=== PATIENT | male | born 1980 | race American Indian/Alaskan Native ===

== ENCOUNTER 2020-06-23 00:37 | Emergency (ER) | payer BC ==
[2020-06-23 02:31] VITALS: BP 135/96
--- NOTE | 2020-06-23 03:10 | XRay Report ---
RIGHT HAND 3 VIEWS 0256 INDICATION: Lacerations right hand COMPARISON: None available. FINDINGS: Bandaging is seen over the medial hand. No fractures or dislocations are seen. No obvious f oreign bodies are noted. Signer Name: Enio Peacock MD Signed: 06/23/2020 3:05 AM Workstation Name: [id number]
[2020-06-23] MEDS ORDERED: DIPHtheria,PERTUSSIS(ACELL),TETANUS VACCINE/PF 0.5 ML VIAL IM ONE (10:47)
--- NOTE | 2020-06-23 10:49 | Emergency Department Report ---
ED General Adult HPI - General Chief complaint: Laceration/Recheck/Suture Stated complaint: CUT RIGHT HAND Time Seen by Provider: 06/23/20 10:46 Source: patient Mode of arrival: Ambulatory Limitations: No Limitations - History of Present Illness Initial comments: 40-year-old -[place] male patient presents with complaints of right hand lacerations x last night. Patient states he broke a glass while washing dishes and cut his hand accidentally. He is unsure of his last tetanus vaccination. He rates his current pain as a 4/10 in severity. He denies any blood thinners, numbness/tingling/weakness in his hand, or difficulty moving his hand. Severity scale (0 -10): 0 - Related Data Previous Rx's Medication Instructions Recorded Last Taken Type Ibuprofen [Motrin 800 MG tab] 800 mg PO Q8HR PRN #20 tablet 06/23/20 Unknown Rx cephALEXin [Keflex] 500 mg PO Q12HR 7 Days #14 cap 06/23/20 Unknown Rx Allergies Allergy/AdvReac Type Severity Reaction Status Date / Time ciprofloxacin [From Cipro] Allergy Hives Verified 06/23/20 02:31 ED Review of Systems ROS: Stated complaint: CUT RIGHT HAND Other details as noted in HPI Constitutional: denies: malaise Musculoskeletal: denies: joint swelling, arthralgia Skin: as per HPI. denies: change in color Neurological: denies: numbness, paresthesias Hematological/Lymphatic: denies: easy bleeding ED Past Medical Hx - Past Medical History Previous Medical History?: No - Surgical History Past Surgical History?: Yes Additional Surgical History: Gastric sleeve - Social History Smoking Status: Never Smoker Substance Use Type: None - Medications Home Medications: Home Medications Medication Instructions Recorded Confirmed Last Taken Type Ibuprofen [Motrin 800 MG tab] 800 mg PO Q8HR PRN #20 tablet 06/23/20 Unknown Rx cephALEXin [Keflex] 500 mg PO Q12HR 7 Days #14 cap 06/23/20 Unknown Rx ED Physical Exam - General Limitations: No Limitations General appearance: alert, in no apparent distress - Head Head exam: Present: atraumatic, normocephalic - Eye Eye exam: Absent: scleral icterus - Respiratory Respiratory exam: Absent: respiratory distress - Cardiovascular Cardiovascular Exam: Present: regular rate - Extremities Exam Extremities exam: Present: full ROM - Neurological Exam Neurological exam: Present: alert, oriented X3 - Psychiatric Psychiatric exam: Present: normal affect, normal mood - Skin Skin exam: Present: warm, dry, normal color. Absent: intact (3 cm laceration noted to lateral portion of right little finger; second 2 cm laceration noted to dorsal hand beneath the third digit; no obvious foreign bodies noted; patient has normal perfusion of the fingers along with normal range of motion sensation), rash ED Course Vital Signs 06/23/20 02:30 Temperature 98.6 F Pulse Rate 78 Respiratory 18 Rate Blood Pressure 135/96 [Left] O2 Sat by Pulse 97 Oximetry - Laceration /Wound Repair Hand Wound Length (cm): 3 (Second laceration to) Wound's Depth, Shape: linear Wound Explored: clean Betadine Prep?: No Anesthesia: 1% Lidocaine Volume Anesthetic (ccs): 7 Wound Repaired With: sutures Suture Size/Type: 4:0, proline Number of Sutures: 11 (6 continuous sutures placed in little finger laceration; 5 continuous sutures placed in dorsal hand lacerations) Sterile Dressing Applied?: Yes Progress: Minimal bleeding occurred. Patient tolerated procedure well without any immediate complications. Normal perfusion and range of motion of the hand and fingers noted post procedure ED Medical Decision Making - Radiology Data Radiology results: report reviewed RIGHT HAND 3 VIEWS 0256 INDICATION: Lacerations right hand COMPARISON: None available. FINDINGS: Bandaging is seen over the medial hand. No fractures or dislocations are seen. No obvious foreign bodies are noted. - Medical Decision Making 40-year-old -[place] male patient presents with complaints of right hand lacerations x last night. Patient states he broke a glass while washing dishes and cut his hand accidentally. He is unsure of his last tetanus vaccination. He rates his current pain as a 4/10 in severity. He denies any blood thinners, numbness/tingling/weakness in his hand, or difficulty moving his hand. Laceration repaired. Patient tolerated procedure well. X-rays negative for any foreign bodies. Tetanus vaccine updated today in ED. Discussed wound care and signs and symptoms of infection that should prompt immediate return to the emergency department in detail with patient verbalizes understanding. Keflex given for prophylactic infection treatment. Patient instructed to return to ED in 10 days for suture removal. Critical care attestation.: If time is entered above; I have spent that time in minutes in the direct care of this critically ill patient, excluding procedure time. ED Disposition Clinical Impression: Laceration of hand, right Qualifiers: Encounter type: initial encounter Foreign body presence: without foreign body Qualified Code(s): S61.411A - Laceration without foreign body of right hand, initial encounter Disposition: TO HOME OR SELFCARE Is pt being admited?: No Condition: Stable Instructions: Sutured Wound Care, [id number] Additional Instructions: Return to the emergency department in 10 days for suture removal Prescriptions: cephALEXin [Keflex] 500 mg PO Q12HR 7 Days #14 cap Ibuprofen [Motrin 800 MG tab] 800 mg PO Q8HR PRN #20 tablet PRN Reason: pain Referrals: PRIMARY CARE,MD [Primary Care Provider] - 3-5 Days Forms: Work/School Release Form(ED)
== END 2020-06-23 11:54 | disposition home or self-care (01) ==
LOC: ED 00:37
DX: S61.411A Laceration without foreign body of right hand, initial encounter (principal); Z79.899 Other long term (current) drug therapy; Z88.8 Allergy status to other drugs, medicaments and biological substances; W25.XXXA Contact with sharp glass, initial encounter; Y93.89 Activity, other specified; Y92.89 Other specified places as the place of occurrence of the external cause; Y99.8 Other external cause status
CPT/HCPCS: 90471; 90715; 99283

== ENCOUNTER 2020-07-08 08:31 | Emergency (ER) | payer BC ==
[2020-07-08 08:39] VITALS: BP 118/90
--- NOTE | 2020-07-08 09:03 | Emergency Department Report ---
ED General Adult HPI - General Chief complaint: Laceration/Recheck/Suture Stated complaint: STITCHES REMOVAL Time Seen by Provider: 07/08/20 08:50 Source: patient Mode of arrival: Ambulatory Limitations: No Limitations - History of Present Illness Initial comments: 40-year-old -[place] male patient presents for suture removal today. Sutures were placed here in the ED 06/23/20. Pt denies He states any pain, drainage, swelling, or complaints. Pt states compliance with keflex. - Related Data Previous Rx's Medication Instructions Recorded Last Taken Type Ibuprofen [Motrin 800 MG tab] 800 mg PO Q8HR PRN #20 tablet 06/23/20 Unknown Rx cephALEXin [Keflex] 500 mg PO Q12HR 7 Days #14 cap 06/23/20 Unknown Rx Allergies Allergy/AdvReac Type Severity Reaction Status Date / Time ciprofloxacin [From Cipro] Allergy Hives Verified 07/08/20 08:36 ED Review of Systems ROS: Stated complaint: STITCHES REMOVAL Other details as noted in HPI Constitutional: denies: chills, fever, malaise Musculoskeletal: denies: joint swelling, arthralgia Skin: denies: rash, change in color Neurological: denies: headache ED Past Medical Hx - Surgical History Additional Surgical History: Gastric sleeve - Social History Smoking Status: Never Smoker Substance Use Type: None - Medications Home Medications: Home Medications Medication Instructions Recorded Confirmed Last Taken Type Ibuprofen [Motrin 800 MG tab] 800 mg PO Q8HR PRN #20 tablet 06/23/20 Unknown Rx cephALEXin [Keflex] 500 mg PO Q12HR 7 Days #14 cap 06/23/20 Unknown Rx ED Physical Exam - General Limitations: No Limitations General appearance: alert, in no apparent distress - Head Head exam: Present: atraumatic, normocephalic - Eye Eye exam: Absent: scleral icterus - Respiratory Respiratory exam: Absent: respiratory distress - Cardiovascular Cardiovascular Exam: Present: regular rate - Extremities Exam Extremities exam: Present: full ROM - Neurological Exam Neurological exam: Present: alert, oriented X3 - Psychiatric Psychiatric exam: Present: normal affect, normal mood - Skin Skin exam: Present: warm, dry, intact, normal color, other (2 healing lacerations noted to right hand with sutures in place; no purulent drainage, erythema, or swelling noted). Absent: rash ED Course Vital Signs 07/08/20 08:38 Temperature 98.2 F Pulse Rate 72 Respiratory 18 Rate Blood Pressure 118/90 O2 Sat by Pulse 98 Oximetry - Procedure Description Procedures done: 11 sutures removed from wound without immediate complication. No bleeding or purulent drainage noted. No wound dehiscence noted. Patient tolerated procedure well ED Medical Decision Making - Medical Decision Making 40-year-old -[place] male patient presents for suture removal today. Sutures were placed here in the ED 06/23/20. Pt denies He states any pain, drainage, swelling, or complaints. Pt states compliance with keflex. Sutures removed without any immediate complication. Patient tolerated procedure well. His vitals are stable, he is well-appearing, he is stable for discharge home. Strict return precautions were discussed in detail with patient who verbalized understanding. Patient to follow-up with primary care provider as needed. Critical care attestation.: If time is entered above; I have spent that time in minutes in the direct care of this critically ill patient, excluding procedure time. ED Disposition Clinical Impression: Encounter for removal of sutures Disposition: DC-01 TO HOME OR SELFCARE Is pt being admited?: No Condition: Stable Instructions: Wound Closure Removal, Care After Referrals: PRIMARY CARE, [Primary Care Provider] - 3-5 Days
== END 2020-07-08 09:43 | disposition home or self-care (01) ==
LOC: ED 08:31
DX: S61.411D Laceration without foreign body of right hand, subsequent encounter (principal); Z48.02 Encounter for removal of sutures; X58.XXXD Exposure to other specified factors, subsequent encounter
CPT/HCPCS: 99282